=== PATIENT | female | born 1965 | race Caucasian/White ===

== ENCOUNTER 2019-01-01 12:53 | Emergency (ER) | payer MEDICAID, OTHER ==
[~2019-01-01] VITALS: Ht 167.6 cm; Wt 66.0 kg
[~2019-01-01 12:53] MED LIST: NAPR-56 PO
[2019-01-01 13:01] VITALS: BP 111/86
== END 2019-01-01 14:00 | disposition left against medical advice (07) ==
LOC: ER 12:54
DX: R10.9 Unspecified abdominal pain (principal); Z53.21 Procedure and treatment not carried out due to patient leaving prior to being seen by health care provider

== ENCOUNTER 2020-08-26 16:15 | Emergency (ER) | payer MEDICAID, OTHER ==
[~2020-08-26] VITALS: Ht 167.6 cm; Wt 70.5 kg
[2020-08-26 18:57] VITALS: BP 144/81
--- NOTE | 2020-08-26 19:11 | NUR ---
Provider RENU Arenas reports IV access is not needed at this time.
--- NOTE | 2020-08-26 19:11 | NUR ---
Attempted IV access in the right posterior forearm unsuccessfully. 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
[2020-08-26 19:16] LABS: BASOPHILS % (AUTO) 0.3 % (0-1); EOSINOPHILS # (AUTO) 0.1 X10'3 (0-0.9); EOSINOPHILS % (AUTO) 0.8 % (0-6); HEMATOCRIT 40.1 % (35.0-45.0); HEMOGLOBIN 13.4 g/dl (12.0-16.0); LYMPHOCYTES % (AUTO) 10.5 % (21-51); MEAN CORPUSCULAR HEMOGLOBIN 29.7 PG (27.0-31.0); MEAN CORPUSCULAR HGB CONC 33.5 g/dL (33.0-36.5); MEAN CORPUSCULAR VOLUME 88.7 FL (78-98); MEAN PLATELET VOLUME 7.6 FL (7.4-10.4); MONOCYTES # (AUTO) 0.3 X10'3 (0-0.9); MONOCYTES % (AUTO) 3.6 % (2-12); NEUTROPHILS # (AUTO) 8.2 X10'3 (1.8-7.7); NEUTROPHILS % (AUTO) 84.8 % (42-75); PLATELET COUNT 240 X10'3 (140-440); RED BLOOD COUNT 4.52 X10'6 (4.20-5.60); RED CELL DISTRIBUTION WIDTH 14.1 % (11.5-14.5); WHITE BLOOD COUNT 9.6 X10'3 (4.5-11.0)
[2020-08-26 19:33] LABS: ALANINE AMINOTRANSFERASE 50 U/L (12-78); ALBUMIN 3.9 G/DL (3.4-5.0); ALBUMIN/GLOBULIN RATIO 1.2 (1.1-1.5); ALKALINE PHOSPHATASE 114 IU/L (46-116); ANION GAP 9 (8-16); ASPARTATE AMINO TRANSFERASE 33 U/L (10-37); BILIRUBIN,TOTAL 0.3 MG/DL (0.1-1.0); BLOOD UREA NITROGEN 15 MG/DL (7-18); BUN/CREATININE RATIO 16.1 (6.6-38.0); CALCIUM 9.2 MG/DL (8.5-10.1); CHLORIDE 106 MMOL/L (99-107); CREATININE 0.93 MG/DL (0.40-0.90); GLUCOSE 110 MG/DL (70-104); POTASSIUM 4.2 MMOL/L (3.5-5.1); SODIUM 141 MMOL/L (135-145); TOTAL CARBON DIOXIDE 26.1 MMOL/L (24-32); TOTAL PROTEIN 7.2 G/DL (6.4-8.2); eGFR 63 ML/MIN
== END 2020-08-26 21:40 | disposition home or self-care (01) ==
LOC: ER 16:15
DX: R07.2 Precordial pain (principal); F19.10 Other psychoactive substance abuse, uncomplicated; F11.10 Opioid abuse, uncomplicated; G89.29 Other chronic pain; Z90.49 Acquired absence of other specified parts of digestive tract; Z90.710 Acquired absence of both cervix and uterus; Z91.011 Allergy to milk products; Z88.8 Allergy status to other drugs, medicaments and biological substances; Z79.899 Other long term (current) drug therapy
CPT/HCPCS: 36415; 71045; 80053; 83735; 83880; 84484; 85025; 93005; 99285

== ENCOUNTER 2022-05-10 20:31 | Emergency (ER) | payer SELFPAY ==
[~2022-05-10] VITALS: Ht 167.6 cm; Wt 68.2 kg
[2022-05-10 20:53] VITALS: BP 171/83
== END 2022-05-11 06:28 | disposition left against medical advice (07) ==
LOC: ER 20:31
DX: Z00.00 Encounter for general adult medical examination without abnormal findings (principal); Z53.21 Procedure and treatment not carried out due to patient leaving prior to being seen by health care provider; W45.8XXA Other foreign body or object entering through skin, initial encounter; Y93.89 Activity, other specified; Y92.89 Other specified places as the place of occurrence of the external cause; Y99.8 Other external cause status
CPT/HCPCS: 73090

== ENCOUNTER 2022-11-21 13:17 | Emergency (ER) | payer MEDICAID ==
[~2022-11-21] VITALS: Ht 167.6 cm; Wt 81.8 kg
--- NOTE | 2022-11-21 13:45 | NUR ---
Met with patient for narcotic withdrawal. Patient last used Fentanyl 35 hours ago and took a Suboxone 8mg and now has symptoms of precipitated withdrawal. Patient doesn't have a current MAT provider. I gave patient information on [facility], [facility], [facility] and my card to call me with any questions.
[2022-11-21] MEDS ORDERED: buprenorphine/naloxone 8MG-2MG SUBlingual film SL STA ×7 (14:09→18:15)
[2022-11-21] MEDS ORDERED: ondansetron/PF 4mg/2ml inj IV ONE (14:10)
[2022-11-21] MEDS ORDERED: normal saline 1000ML IV soln IVB ONE ×2 (14:10→17:05)
[2022-11-21] MEDS ORDERED: cloNIDine 0.1 mg tablet PO ONE (14:10)
[2022-11-21 14:43] LABS: BASOPHILS % (AUTO) 0.4 % (0-1); EOSINOPHILS # (AUTO) 0.2 X10'3 (0-0.9); EOSINOPHILS % (AUTO) 1.7 % (0-6); HEMATOCRIT 49.5 % (35.0-45.0); HEMOGLOBIN 15.7 g/dl (12.0-16.0); LYMPHOCYTES % (AUTO) 20.6 % (21-51); MEAN CORPUSCULAR HEMOGLOBIN 28.9 PG (27.0-31.0); MEAN CORPUSCULAR HGB CONC 31.7 g/dL (33.0-36.5); MEAN CORPUSCULAR VOLUME 91.1 FL (78-98); MEAN PLATELET VOLUME 7.3 FL (7.4-10.4); MONOCYTES # (AUTO) 0.5 X10'3 (0-0.9); MONOCYTES % (AUTO) 5.6 % (2-12); NEUTROPHILS # (AUTO) 6.8 X10'3 (1.8-7.7); NEUTROPHILS % (AUTO) 71.7 % (42-75); PLATELET COUNT 287 X10'3 (140-440); RED BLOOD COUNT 5.44 X10'6 (4.20-5.60); WHITE BLOOD COUNT 9.5 X10'3 (4.5-11.0)
[2022-11-21 15:03] LABS: ALANINE AMINOTRANSFERASE 31 U/L (12-78); ALBUMIN 3.8 G/DL (3.4-5.0); ALBUMIN/GLOBULIN RATIO 0.8 (1.1-1.5); ALKALINE PHOSPHATASE 144 IU/L (46-116); ANION GAP 13 (8-16); ASPARTATE AMINO TRANSFERASE 29 U/L (10-37); BILIRUBIN,TOTAL 0.4 MG/DL (0.1-1.0); BLOOD UREA NITROGEN 11 MG/DL (7-18); BUN/CREATININE RATIO 10.3 (6.6-38.0); CALCIUM 9.7 MG/DL (8.5-10.1); CHLORIDE 106 MMOL/L (99-107); CREATININE 1.07 MG/DL (0.40-0.90); GLUCOSE 87 MG/DL (70-104); POTASSIUM 4.3 MMOL/L (3.5-5.1); SODIUM 138 MMOL/L (135-145); TOTAL CARBON DIOXIDE 19.4 MMOL/L (24-32); TOTAL PROTEIN 8.3 G/DL (6.4-8.2); eGFR 53 ML/MIN
--- NOTE | 2022-11-21 15:31 | NUR ---
PATIENT TAKING BP CUFF OFF, REFUSING VS MONITORING.
[2022-11-21] MEDS ORDERED: haloperidol lactate 5mg/ml inj IM ONE (15:50)
[2022-11-21] MEDS ORDERED: buprenorphine/naloxone 8MG-2MG SUBlingual film SL ONE (16:55)
--- NOTE | 2022-11-21 17:31 | NUR ---
PT'S FRIEND, JOSEJACQUES HONG, CALLED AND GAVE HER PHONE # TO CALL FOR WHEN PT IS BEING DISCHARGED;
[2022-11-21 18:15] VITALS: BP 171/111
[2022-11-21] MEDS ORDERED: BUPR1FIL3 SL (18:27)
== END 2022-11-21 19:55 | disposition home or self-care (01) ==
LOC: ER 13:18
DX: F11.23 Opioid dependence with withdrawal (principal); R10.30 Lower abdominal pain, unspecified; G89.29 Other chronic pain; Z90.710 Acquired absence of both cervix and uterus; Z90.49 Acquired absence of other specified parts of digestive tract; Z98.890 Other specified postprocedural states; Z79.899 Other long term (current) drug therapy
CPT/HCPCS: 36415; 80053; 85025; 96361; 96372; 96374; 99285; J1630; J2405; J7030

== ENCOUNTER 2024-06-08 23:11 | Emergency (ER) | payer MEDICAID, OTHER ==
[~2024-06-08] VITALS: Ht 167.6 cm; Wt 77.3 kg
[2024-06-08] MEDS ORDERED: NAPR-996 PO (23:59)
[2024-06-08] MEDS ORDERED: DICL1PAT13 TOP (23:59)
[2024-06-09] MEDS: ketorolac trometh 15mg/ml vial 15 MG/ML ML IM ONE (00:01)
[2024-06-09 00:11] VITALS: BP 162/90; PULSE 99; RESP 20; TEMP 98.6; O2SAT 98
== END 2024-06-09 00:15 | disposition home or self-care (01) ==
LOC: ER 23:11
DX: M25.511 Pain in right shoulder (principal); G89.29 Other chronic pain; M54.9 Dorsalgia, unspecified; Z90.49 Acquired absence of other specified parts of digestive tract; Z90.710 Acquired absence of both cervix and uterus; Z79.1 Long term (current) use of non-steroidal anti-inflammatories (NSAID)
CPT/HCPCS: 73030; 96372; 99283; J1885; A4565

== ENCOUNTER 2025-04-20 02:56 | Inpatient (IN) | payer MEDICAID ==
[~2025-04-20] VITALS: Ht 167.6 cm; Wt 76.0 kg
[~2025-04-20 02:56] MED LIST changes: +DICL1PAT13 TOP; +NAPR-1168 PO
--- NOTE | 2025-04-20 03:13 | ELECTROCARDIOGRAPH REPORT ---
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 Vannessa Rodriguez Measurements Intervals [place] Rate: 82 P: -33 SD: 128 QRS: 58 QRSD: 90 T: 31 QT: 382 QTc: 446 Interpretive Statements Sinus rhythm Low voltage, precordial leads Anteroseptal infarct, old Baseline wander in lead(s) I,II,III,aVL,aVF,V1,V2,V3,V4,V5 Electronically Signed On 04-20-2025 4:14:[address] Vannessa Rodriguez Please click the below link to view image of tracing.
[2025-04-20] MEDS: ondansetron/PF 4mg/2ml inj IV ONE ×4 (03:44→10:15)
--- NOTE | 2025-04-20 03:55 | RADIOLOGY REPORT ---
CHEST RADIOGRAPH Indication: CP Technique: Single frontal view of the chest was obtained COMPARISON: CHEST,SINGLE VIEW on DOS: 08/26/20 FINDINGS: Lines and Tubes: None Lungs: Clear Pleura: No effusion. No pneumothorax. Cardiomediastinal contours: Unremarkable Bones: Unremarkable IMPRESSION: 1. No acute disease.
[2025-04-20 03:59] LABS: MEAN PLATELET VOLUME 8.0 FL (7.4-10.4); RED CELL DISTRIBUTION WIDTH 14.9 % (11.5-14.5)
[2025-04-20 05:11] LABS: CREATININE 1.15 MG/DL (0.40-0.90); TOTAL CARBON DIOXIDE 25.3 MMOL/L (24-32); eCRCL 51 ML/MIN; eGFR 49 ML/MIN
--- NOTE | 2025-04-20 05:16 | Physician Documentation ---
History of Present Illness Chief Complaint: Abdominal Pain Stated Complaint: CONSTIPATION,VOMITING Time Seen by MD: 05:11 Primary Medical Doctor: None Source: patient, RN notes reviewed, old records Mode of Arrival: POV Exam Limitations: no limitations HPI BED 16 This patient is a 59 y/o female who presents to ED with chief complaint of abdominal pain. Patient reports that since last night she has had severe abdominal pain, as well as nausea and vomiting. Patient reports she has history of small bowel obstruction, and that this pain feels similar. She describes the pain as a constant sharp pain, no radiation anywhere else. HPI limited: Patient is moaning in pain, unable to answer many of my questions due to her pain. Medication Reconciliation Allergies: Uncoded Allergies: DAIRY (Allergy, Intermediate, 12/08/11) DIARRHEA PENICILLIN (Allergy, Unknown, 04/20/25) Scheduled Clindamycin HCl (Clindamycin HCl), 1 CAP PO TID, (Reported) [methadone], 81 MG PO DAILY, (Reported) Discontinued Medications Diclofenac Epolamine (Flector), 1 PATCH TOP Q12H Discontinued Reason: patient no longer taking Naproxen (Naproxen), 500 MG PO Q12H Discontinued Reason: patient no longer taking Naproxen (Naproxen), 1 TAB PO Q12H Discontinued Reason: patient no longer taking Past Medical History Past Medical History: Chronic Back Pain Past Surgical History: appendectomy, hysterectomy, orthopedic surgeries Smoking Status: Unknown if ever smoked Alcohol Use: None Drug Use: none Lives with: Family Lives In: Home Review of Systems All Other Systems at this time: Reviewed and Negative Physical Exam Vital Signs: RN Vital Signs have been reviewed: Yes, Temperature: 97.7, Source: Oral, Heart Rate: 64, Respiratory Rate: 18, BP: 177/95, Pulse Oximetry: 97, We ight: 75.950 Oxygen Flow Rate: 0 Physical Exam General: The patient is in the position, moaning in pain. Otherwise she is well developed, well nourished, nontoxic appearing. Skin: [place], warm and dry with no rashes. HEENT: Head was normocephalic and atraumatic. Eyes - pupils equal, round, reactive to light and accommodation. Extraocular movements were intact. Conjunctivae were nonicteric. Ears - bilateral tympanic membranes were normal. The mouth and oropharynx were clear with moist mucous membranes. There were no pharyngeal exudates or erythema. Neck: Supple and nontender. There was no jugular venous distention, lymphadenopathy, thyromegaly or masses. Chest: Clear to auscultation bilaterally without wheezes, rales or rhonchi. No accessory muscle use. No dullness to percussion. Heart: Rate regular and rhythmic. S1, S2. No murmurs. Palpation of the chest wall was normal. No rubs or thrills. Abdomen: Diffusely tender to palpation. Abdomen otherwise soft and nondistended. Positive bowel sounds. No guarding or rebound. No hepatosplenomegaly or palpable masses. Extremities: No cyanosis, clubbing or edema. The patient moves all extremities. Pulses were equal and symmetric. Neurologic: Cranial nerves II-XII were intact. Sensation was intact to light touch throughout. Motor strength was 5/5 in all four extremities. Deep tendon reflexes were intact in both upper and lower extremities. Psychologic: The patient was oriented to person, place and time. The patient demonstrated appropriate judgement and insight. Progress Progress Note Assumed care of patient from Dr. Noel. Patient with abdominal pain since the middle of the night and vomiting. History of volvulus, . Denies any history of resection. CT scan shows small bowel obstruction. Gave additional Dilaudid and fluids. Did place an NG tube and nursing team reports a got about 100 cc out and then the patient pulled it out because she absolutely could not tolerate it. Discussed with surgeon Dr. Hartman who will consult if needed, otherwise admitted to the hospitalist team. Patient with no chest pain but serial troponins were run and last troponin was slightly elevated. Likely strain. Patient is stable on admission. Results/Orders Reviewed/noted all lab results: Yes Results/Orders Orders - VIET NOEL MD Urinalysis, Cult If Indicated (04/20/25 03:04) Lipase (04/20/25 03:04) CMP (04/20/25 03:04) Chest,Single View (04/20/25 03:45) Monitor (04/20/25 03:04) Saline Lock (04/20/25 03:04) Oxygen (04/20/25 03:04) PBNP (04/20/25 03:04) Electrocardiogram (04/20/25 03:04) Hs Troponin I W Calculations (04/20/25 05:04) Hs Troponin I W Calculations (04/20/25 06:04) Zofran Iv (04/20/25 05:15) Morphine Iv (04/20/25 05:15) Normal Saline Bolus (04/20/25 05:15) Ct Abdomen Pelvis (04/20/25 05:12) Completed Orders - VIET NOEL MD Cbc/Diff (04/20/25 03:04) Chest,Single View (04/20/25 03:45) Electrocardiogram (04/20/25 03:04) Hs Troponin I W Calculations (04/20/25 03:04) Ondansetron Inj. (Zofran 4mg/2ml Vial) (04/20/25 03:15) Medications Received in ER Medications (Trade) Dose Ordered Sig/Radha Route PRN Reason Start Time Stop Time Status Last Admin Dose Admin (Zofran 4mg/2ml vial) 4 mg ONCE ONCE IV 04/20/25 03:15 04/20/25 03:16 DC 04/20/25 03:44 4 MG Vital Signs 04/20/25 04/20/25 04/20/25 02:58 03:30 03:46 Temp 97.7 Pulse 87 64 Resp 16 18 B/P (MAP) 196/115 177/95 (122) Pulse Ox 99 97 O2 Flow Rate 0 Laboratory Tests Test 04/20/25 03:40 04/20/25 05:13 White Blood Count 7.8 Red Blood Count 4.48 Hemoglobin 13.1 Hematocrit 38.8 Mean Corpuscular Volume 86.4 Mean Corpuscular Hemoglobin 29.1 Mean Corpuscular Hemoglobin Concent 33.7 Red Cell Distribution Width 14.9 H Platelet Count 291 Mean Platelet Volume 8.0 Neutrophils (%) (Auto) 52.9 Lymphocytes (%) (Auto) 35.4 Monocytes (%) (Auto) 6.0 Eosinophils (%) (Auto) 4.6 Basophils (%) (Auto) 1.1 H Neutrophils # (Auto) 4.1 Lymphocytes # (Auto) 2.8 Monocytes # (Auto) 0.5 Eosinophils # (Auto) 0.4 Basophils # (Auto) 0.1 CBC Comment Sodium Level 137 Potassium Level 4.0 Chloride Level 104 Carbon Dioxide Level 25.3 Anion Gap 8 Blood Urea Nitrogen 19 H Creatinine 1.15 H Estimated GFR/1.73 m2 49 BUN/Creatinine Ratio 16.5 Glucose Level 108 H Calcium Level 8.9 Total Bilirubin 0.3 Aspartate Amino Transf (AST/SGOT) 27 Alanine Aminotransferase (ALT/SGPT) 31 Alkaline Phosphatase 112 Troponin I High Sensitivity 8 Total Protein 7.1 Albumin 3.7 Globulin 3.4 Albumin/Globulin Ratio 1.1 Chemistry Comments Re-Evaluation Re-Evaluation : Re-Evaluation: Improved, Unchanged Progress Patient was seen and examined. Patient was given reassurance. Patient was moaning in pain just started the workup. To get the patient to CAT scan she required pain medications as well as hydration. After her pain was somewhat improved patient was then sent for additional diagnostic information. Initial labs were reassuring with a CBC within normal limits without leukocytosis anemia or left shift. Sed rate was also reassuring at 13. Chemistry initially was also reassuring with a slight elevation of the BUN at 19 and a creatinine of 1.15. CO2 within normal limits LFTs within normal limits. Lipase within normal limits. Laboratory work was quite normal alcohol negative positive for methadone. Urinalysis shows mild dehydration at best with a specific gravity of 1.015 and also within normal limits. Other than the patient's pain which was treated hydrated patient was signed out to the morning physician pending final diagnosis with CAT scan. Patient did not have peritoneal signs but her pain did seem quite significant. 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 Viet Noel Measurements Intervals [place] Rate: 82 P: -33 DE: 128 QRS: 58 QRSD: 90 T: 31 QT: 382 QTc: 446 Interpretive Statements Sinus rhythm Low voltage, precordial leads Anteroseptal infarct, old Baseline wander in lead(s) I,II,III,aVL,aVF,V1,V2,V3,V4,V5 Electronically Signed On 04-20-2025 4:14:[address] Viet Noel Please click the below link to view image of tracing. EKG Date and Time:04/20/25309 Electronically Signed by: VIET NOEL MD Date and Time: 04/20/25413 NO PRIMARY CARE PROVIDER~ cc: ~ Chest X-Ray : Interpreted By: both Additional Comments [address] [address] DIAGNOSTIC RADIOLOGY Patient: YOMI MUNIZ Medical Record: [id number] : 1965, Age: 59 Sex: Female Location: ER Patient Status: REG ER Service Date/Time: 04/20/25344 Ordering Physician: VIET NOEL MD Exam: CHEST,SINGLE VIEW CHEST RADIOGRAPH Indication: CP Technique: Single frontal view of the chest was obtained COMPARISON: CHEST,SINGLE VIEW on DOS: 08/26/20 FINDINGS: Lines and Tubes: None Lungs: Clear Pleura: No effusion. No pneumothorax. Cardiomediastinal contours: Unremarkable Bones: Unremarkable IMPRESSION: 1. No acute disease. Electronically Signed by:DEJON WHYTE MD Date & Time: 04/20/25 0353 Dictated by: DEJON WHYTE MD Dictation date and time: 04/20/25 0340 Primary Care Provider: NO PRIMARY CARE PROVIDER cc: VIET NOEL MD ~ Medical Decision Making Additional info obtained from: old records Differential Dx:Considerations: Include: AAA, Angina/MA, Aortic dissection, Appendicitis, Bowel obstruction, Cholangitis, Cholelithasis, Constipation, Diverticular disease, Esophageal rupture, Esophagitis, Gastritis/PUD, Gastroenteritis, GI hemorrhage, Hernia, Hepatitis, Inflammatory BD, Ischemic bowel, Ovarian cyst/torsion, Pancreatitis, PID, Porphyria, Trauma, intraabdominal, Urinary obstruction, Urinary tract infection, Urolithiasis, Other Departure Disposition: ADMITTED INPATIENT Admitted to Inpatient Unit: yes, to hospitalist Admission Level of Care: PCU with Tele Impression: Primary Impression: Small bowel obstruction Additional Impression: Abdominal pain Qualified Codes: R10.84 - Generalized abdominal pain Condition: Stable Discharge Instructions: Gastritis, Adult Referrals: NO PRIMARY CARE PROVIDER (PCP) Education Educated: Patient Educated regarding: diagnosis, need for follow up Signature Scribe Signature: Scribed for Viet Noel MD by Otilia Flores. 04/20/25 05:38 Attestation: No scribe used VIET NOEL MD Apr 20, 2025 05:16 MOHSEN YANES MD Apr 20, 2025 11:25
[2025-04-20 05:17] LABS: LEUKOCYTE ESTERASE ,URINE NEGATIVE (Neg); NITRITES, URINE NEGATIVE (Neg); OCCULT BLOOD,URINE NEGATIVE (Neg)
[2025-04-20 05:18] LABS: PRO BRAIN NATRIURETIC PEPTIDE 192 PG/ML (0-125)
[2025-04-20 05:22] LABS: UA COLLECTION TYPE CLN CATCH MIDSTREAM
[2025-04-20] MEDS ORDERED: iohexol 300mg/ml 100ml inj. ONE (05:23)
[2025-04-20] MEDS: normal saline 1000ML IV soln IVB ONE (05:27)
[2025-04-20 06:53] LABS: ETHANOL < 10 MG/DL (<10)
[2025-04-20 08:14] LABS: URINE AMPHETAMINE SCREEN NEGATIVE (Neg); URINE BARBITUATE SCREEN NEGATIVE (Neg); URINE BENZODIAZEPINES SCREEN NEGATIVE (Neg); URINE CANNABINOID SCREEN NEGATIVE (Neg); URINE COCAINE SCREEN NEGATIVE (Neg); URINE METHADONE SCREEN POSITIVE (Neg); URINE OPIATE SCREEN NEGATIVE (Neg); URINE PHENCYCLIDINE SCREEN NEGATIVE (Neg)
--- NOTE | 2025-04-20 09:55 | RADIOLOGY REPORT ---
Exam: CT CT ABDOMEN PELVIS W/ IV CONTRAST History: ABD PAIN Comparison Study: None. Technique: Multidetector spiral CT of the abdomen was performed from lung bases to pubic symphysis. A xial imaging was performed with intravenous contrast following the uneventful administration of 100 m l Omnipaque 300. Coronal and sagittal multiplanar reformats were obtained from the axial data set by the technologist. Radiation Dose : 1. Abdomen/Pelvis: CTDIvol 28.95 mGy, DLP 1511.96 mGy*cm. Findings: Lung Bases: Lung bases are clear. Visualized portions of the heart and pericardium are unremarkable. Liver: The liver is normal in size. No focal lesions. Diffusely hypoattenuating liver parenchyma con sistent with hepatic steatosis. Gallbladder and Biliary Tree: The gallbladder is unremarkable. No intrahepatic or extrahepatic biliar y ductal dilatation. Spleen: Unremarkable Pancreas: The pancreas enhances normally and there are no focal lesions. The main pancreatic duct is not dilated. Adrenal Glands: Unremarkable Kidneys: Kidneys enhance symmetrically. No calculi or hydronephrosis. GI tract: The stomach is grossly normal in appearance. There are several dilated fluid-filled small bowel loops with abrupt transition to collapsed small bowel loops in the central lower abdomen consis tent with high-grade small bowel obstruction. There is stool throughout the colon. Appendix not visu alized. No findings to suggest acute appendicitis. Peritoneum/mesentery/retroperitoneum. No evidence of free intraperitoneal air. No ascites. No evidenc e of suspicious lymphadenopathy. Abdominal Wall: Unremarkable. Vasculature: Abdominal aorta and main branches are unremarkable. Normal vascular enhancement. Urinary Bladder: Grossly unremarkable for degree of distention. Pelvic Organs: Unremarkable Musculoskeletal: No aggressive focal bony lesions, acute fractures or dislocation. Multilevel lumbar spondylosis. Grade 1 anterolisthesis at L5-S1. IMPRESSION: 1. High-grade small-bowel obstruction with transition point in the central lower abdomen. 2. Hepatic steatosis.
[2025-04-20] MEDS ORDERED: HYDROmorphone/PF 0.2 MG/ML SYRINGE IV ONE (10:10)
[2025-04-20] MEDS: normal saline 1000ml 1,000 ML IV ONE (10:15)
[2025-04-20] MEDS ORDERED: magnesium sulf-water 4G/100mL 100 ML IV PRN (11:45)
[2025-04-20] MEDS ORDERED: acetaminophen 650mg rectal suppository RC PRN (11:45)
[2025-04-20] MEDS ORDERED: bisacodyl 10mg suppository rectal RC PRN (11:45)
[2025-04-20] MEDS ORDERED: potassium Cl 20 mEq SR tablet PO PRN (11:45)
[2025-04-20] MEDS ORDERED: magnesium Cl slow-release 64mg tablet PO PRN (11:45)
[2025-04-20] MEDS ORDERED: potassium Cl 40MEQ/1/2NS 520ml 520 ML IV PRN (11:45)
[2025-04-20] MEDS ORDERED: mag hydrox/Alum hydrox/simeth 30ml oral suspension PO PRN (11:45)
[2025-04-20] MEDS ORDERED: magnesium sulf-water 2g/50mL 50 ML IV PRN (11:45)
[2025-04-20 12:18] LABS: APTT 28 SECONDS (22-32); INR 1.0 INR
[2025-04-20 12:35] LABS: PHOSPHORUS 2.7 MG/DL (2.3-4.5); PRO BRAIN NATRIURETIC PEPTIDE 703 PG/ML (0-125)
[2025-04-20] MEDS: HYDROmorphone inj. 0.5 MG/0.5 ML DISP.SYRIN IV PRN (13:04)
--- NOTE | 2025-04-20 14:17 | HISTORY AND PHYSICAL ---
History & Physical Providers to Chief complaint, abdominal pain, nausea vomiting ~ History of Present Illness Reason for Admit\Complaint: As above History of Present Illness This patient is a 59 y/o female , with history of multiple medical problems including hypertension uncontrolled, blood pressure on admission 196/115, on methadone now, history of polysubstance abuse including fentanyl abuse in the past, clear now, history of hepatic steatosis, chronic tobacco abuse including currently, history of presented today to emergency department chief complaint nausea vomiting associated with abdominal pain; in addition this is the patient who presents to ED with chief complaint of aching, located periumbilically, abdominal pain. Patient reports that since last night she has had severe abdominal pain, as well as nausea and vomiting. Patient reports she has history of small bowel obstruction, and that this pain feels similar. She describes the pain as a constant sharp pain, no radiation anywhere else. HPI limited: Patient is moaning in pain, unable to answer many of my questions due to her pain. Emergency department she was evaluated by physician, was diagnosed with small-bowel obstruction, and after consultation with general surgeon, decision was made to admit patient for further evaluation and treatment. NG tube was placed but patient refused to use it, and remove the NG tube, no additional complaint or concern Allergies: Uncoded Allergies: DAIRY (Allergy, Intermediate, 12/08/11) DIARRHEA PENICILLIN (Allergy, Unknown, 04/20/25) Active prescriptions I reviewed reconciled Home Medications Home Medications Active Naproxen 500 Mg Tablet 1 Tab PO Q12H 30 Days Flector (Diclofenac Epolamine) 1.3 % Patch.td12 1 Patch TOP Q12H 30 Days Naproxen 500 Mg Tablet 500 Mg PO Q12H Past Medical History Past Medical History As in HPI Past Surgical History Surgical History Comment As in HPI Past Social History Social History Comment Deny illicit drug abuse tobacco alcohol use live with the family good social support Health Maintenance Health Maintenance Noncontributory ROS ROS Constitutional : no fever , no chills, or weakness. No diaphoresis. Allergic/Immunologic, no lymphadenopathy, no hives, no skin eruptions. Eyes, no recent visual changes, no eye pain, no photophobia. Ears, nose, mouth, throat, no sore throat, no nosebleed, no ear pain. Cardiovascular, no palpitations, skipped beats, chest pain, no peripheral edema, Respiratory, no dyspnea, orthopnea, cough, hemoptysis, chest wall pain. Gastrointestinal, positive for abdominal pain, nausea, vomiting, no constipation or diarrhea. : no dysuria, hematuria, pelvic pain, urethral d/c. Endocrine, no polyuria, polydipsia, recent unintentional weight gain or loss. Hematologic/Lymphatic, no petechiae, no enlarged lymph nodes, no bone pain. Integumentary, no rash, no skin lesions, Musculoskeletal, no muscle aches, or pain, no muscle cramps, no recent change in gait Neurological, no dizziness, no headache, no syncope, no paresthesia. Psychiatric, no delusions, visual hallucinations, or hearing hallucinations. ROS - in rest is as in HPI. Exam Vitals: Vital Signs Date Time Temp Pulse Resp B/P (MAP) Pulse Ox O2 Delivery O2 Flow Rate FiO2 04/20/25 13:04 18 04/20/25 09:33 72 140/114 (123) 99 0 04/20/25 06:20 97.7 Vital signs, stable ,afebrile. Pulse Oximetry reflects adequate oxygenation. BMI is 27, weight 75 kg General: well developed, well nourished. Awake , alert, and oriented x4, resting comfortably in the bed, in no acute distress . Skin: Warm, dry, no pallor, no rash or petechiae. HEENT: Atraumatic, normocephalic, EOMI, anicteric sclera B; pink conjunctiva; PERRLA, normal oropharynx, moist oral and nasal mucosa. Tympanic membrane , nose , throat clear. Neck: Trachea midline. Supple, full range of motion, no JVD, bruit , hepatojugular reflex , lymphadenopathy or masses, or other lesions Cardiac: Regular rhythm, regular rate no murmurs, rubs, or gallops. Normal S1 and S2, no S3 noticed. PMI is normal. Respiratory: Equal breath sounds bilaterally, no tachypnea; lungs clear to auscultation bilaterally, no wheezing ,rub or rales, or crackles. Chest wall is symmetric and without deformity. No signs of trauma. Chest wall is nontender. No signs of respiratory distress. Resonance is normal upon percussion bilaterally. Gastrointestinal: Abdomen symmetric, non-distended, soft, mild tender to palpation periumbilically, normal bowel sounds x4 quadrant, normoactive, no hepatosplenomegaly , no masses , no bruit, no flank pain bilaterally. No voluntary guarding, rebound, or rigidity. No tenderness to percussion. No pulsatile masses. Equal femoral pulses. No Freitas's sign or McBurney point tenderness. Back; no CVA tenderness bilaterally, no deformities. Neck and back are without deformity as well. No tenderness noted on palpation of the spinous processes. Spinous processes are midline. Cervical, thoracic, and lumbar paraspinal muscles are not tender and are without spasm. : Deferred by patient Musculoskeletal: Extremities, normal range of motion, non-tender, muscle strength 5/5 x 4. Negative Homans signs bilaterally on lower extremity. Distal pulses full symmetrical, no clubbing, cyanosis , edema. Neurological: Speech is clear, alert, and oriented x 4. No motor or sensory deficit, deep tendon reflexes normal, cerebellar intact. Cranial nerves II-XII intact. Psych: Alert and or appropriate, normal affect. Vascular: Good distal pulses, which are equal x4; capillary refill less than 2 seconds. Lymphatic, no lymphadenopathy. Diagnostic Data Last Recorded Lab Results: 04/20/25 0340 04/20/25 0340 Diagnostic Data: Laboratory Tests Test 04/20/25 09:30 Prothrombin Time 10.3 SECONDS (9.0-12.0) INR International Normalized Ratio 1.0 INR Activated Partial Thromboplast Time 28 SECONDS (22-32) Coagulation Comments Advance Care Planning Advanced Care plannin - 30 Minutes Additional Plan Assessment Small-bowel obstruction Hypertensive emergency Non ST-elevation MN type 2 secondary to hypertensive emergency Hepatic steatosis History of polysubstance abuse including fentanyl abuse clear now On methadone therapy at home, secondary to above History of Chronic tobacco abuse including currently Plan Pain control, IV fluids keep patient well hydrated euvolemic Control blood pressure Serial troponin EKG NG tube was in place, patient remove it secondary to noncompliance Consulted for 5 minute to stop using tobacco patient states is not ready yet to quit refused treatment General surgeon Dr. Lagos is on the case Additional lab work pending Protonix IV I reconciled home medications NPO DVT gastropathy prophylaxis addressed Sepsis Screening Reassessment Date: Apr 20, 2025 Date of Service: Apr 20, 2025 Billing Provider: HIWOT BUITRAGO MD Common Visit Codes: 11111-IUI/OBS SAME DATE (HIGH) Secondary Visit Codes: 04436-GTRDL CHNG SMOKING 3-10M, 53711-AZYHNIPI CARE PLAN 30 MINUTES HIWOT BUITRAGO MD Apr 20, 2025 14:17
[2025-04-20] MEDS ORDERED: methadone PO (14:35)
[2025-04-20] MEDS ORDERED: CLIN-216 PO (14:35)
[2025-04-20] MEDS: normal saline 1000ml 1,000 ML IV SCH (14:53)
[2025-04-20 15:00] VITALS: BP 119/61; PULSE 85; RESP 16; TEMP 98; O2SAT 98
[2025-04-20] MEDS: ondansetron 4mg rapidly disintigrating tab PO PRN (15:04)
[2025-04-20] MEDS: docusate sod 100mg capsule PO SCH (19:50)
[2025-04-20] MEDS: heparin, porcine 5000 units/ml vial SQ SCH (19:50)
[2025-04-20] MEDS: K and/or MAG REPLACEMENT MC SCH (19:51)
[2025-04-20 20:00] VITALS: RESP 16; O2SAT 99
[2025-04-20] MEDS ORDERED: pantoprazole 40MG/NS 100ML BAG 100 ML IV SCH (20:00)
--- NOTE | 2025-04-20 20:47 | PROGRESS NOTE ---
Progress Note Dictate Providers to CC CC: MERE MAGUIRE MD ~ Progress Note: Consult for small-bowel obstruction Patient had a previous small bowel obstruction about 13 years ago with a previous appendectomy and hysterectomy prior to that Non bilious nasogastric tube output Abdomen benign Oral contrast, large dose given at 930-miah CT scan ordered for 1st thing tomorrow morning I will continue to follow and full consult note will also follow Antibiotic Ordered?: No Objective Vitals Vital Signs Date Time Temp Pulse Resp B/P (MAP) Pulse Ox O2 Delivery O2 Flow Rate FiO2 04/20/25 19:50 18 04/20/25 18:30 73 04/20/25 15:00 98.0 119/61 (80) 98 Nasal Cannula 3.0 Lab Results: 04/20/25 0340 04/20/25 0340 Coagulation Studies Laboratory Tests Test 04/20/25 09:30 04/20/25 18:07 Prothrombin Time 10.3 SECONDS (9.0-12.0) INR International Normalized Ratio 1.0 INR Activated Partial Thromboplast Time 28 SECONDS (22-32) Coagulation Comments D-Dimer 1.34 MG/L FEU (0-0.50) H D-Dimer Comment MERE MAGUIRE MD Apr 20, 2025 20:47
[2025-04-20] MEDS: hydrALAZINE 20mg/ml inj. IV PRN (23:01)
[2025-04-20] MEDS: diatrozoate meglu/diatrozoate sod (37% iodine) 120ML oral solution PO ONE (23:02)
[2025-04-20] MEDS: ondansetron/PF 4mg/2ml inj IV PRN (23:26)
[2025-04-21] MEDS: metoclopramide 5 mg/ml inj IV PRN (02:49)
[2025-04-21 06:00] VITALS: BP 165/97; PULSE 85; RESP 18; TEMP 98.2; O2SAT 94
[2025-04-21 08:00] VITALS: RESP 18; O2SAT 94
[2025-04-21 11:00] VITALS: BP 128/76; PULSE 93; RESP 19; TEMP 99; O2SAT 96
--- NOTE | 2025-04-21 13:16 | RADIOLOGY REPORT ---
Indication: SBO Technique: CT axial images of the abdomen and pelvis are obtained with intravenous contrast. Coronal and sagittal reformats were obtained. Radiation Dose Information: CTDI volume is 36.2 mGy. Dose-length product is 1737 mGy*cm Comparison: CT CT ABDOMEN PELVIS W/ IV CONTRAST on DOS: 04/20/25 FINDINGS: Lung bases demonstrate no pleural effusion. Adrenal glands, spleen, pancreas unremarkable in shape. Vicarious excretion contrast from the gallbl adder consistent with underlying renal dysfunction. Liver is unremarkable in shape. No hydronephrosis/ nephrolithiasis. Small hiatal hernia. Stomach is partially distended. The small-bowel loops are significantly decreas ed in distention compared to the previous examination. The Fecal like contents are nearly resolved. Contrast reaches the hepatic flexure of the colon. Colonic diverticular disease. Moderate volume st ool in the colon. No secondary signs for appendicitis. Abdominal aortic atherosclerotic disease. Bladder partially distended. No free pelvic fluid. No ingui nal lymphadenopathy. Moderate to advanced thoracolumbar degenerative disc disease most pronounced at L5-S1. Endplate irre gularity changes at L5-S1.5 mm anterolisthesis of L5 on S1. IMPRESSION: Interval significantly decreased distention of the small bowel loops with contrast reaching the hepat ic flexure of the colon. These findings are suggesting improving/resolving small bowel obstruction. Recommend continued imaging follow-up. Surgical consultation for management. Moderate to advanced thoracolumbar degenerative disc disease most pronounced at L5-S1. Colonic diverticular disease. Other findings as described.
[2025-04-21 14:01] LABS: MEAN PLATELET VOLUME 8.0 FL (7.4-10.4); RED CELL DISTRIBUTION WIDTH 15.2 % (11.5-14.5)
--- NOTE | 2025-04-21 14:07 | PROGRESS NOTE ---
Progress Note Dictate Providers to CC CC: MERE MAGUIRE MD ~ Progress Note: No obstruction on repeat CT Surgery will sign off Antibiotic Ordered?: No Objective Vitals Vital Signs Date Time Temp Pulse Resp B/P (MAP) Pulse Ox O2 Delivery O2 Flow Rate FiO2 04/21/25 12:40 16 04/21/25 11:00 99.0 93 128/76 (93) 96 Room Air 04/20/25 15:00 3.0 Lab Results: 04/21/25 1341 04/20/25 0340 Coagulation Studies Laboratory Tests Test 04/20/25 09:30 04/20/25 18:07 Prothrombin Time 10.3 SECONDS (9.0-12.0) INR International Normalized Ratio 1.0 INR Activated Partial Thromboplast Time 28 SECONDS (22-32) Coagulation Comments D-Dimer 1.34 MG/L FEU (0-0.50) H D-Dimer Comment MERE MAGUIRE MD Apr 21, 2025 14:06
[2025-04-21 14:26] LABS: CHOL/HDL RATIO 4.9 (0.00-4.99); CREATININE 0.89 MG/DL (0.40-0.90); LDL CHOLESTEROL 152 MG/DL (50-100); TOTAL CARBON DIOXIDE 24.5 MMOL/L (24-32); eCRCL 65 ML/MIN; eGFR 65 ML/MIN
[2025-04-21 15:00] VITALS: BP 146/87; PULSE 74; RESP 22; TEMP 97.6; O2SAT 96
[2025-04-21 18:00] VITALS: BP 182/98; PULSE 73; RESP 16; TEMP 97.8; O2SAT 93
[2025-04-21] MEDS: normal saline 1000ml 1,000 ML IV SCH (18:01)
[2025-04-21] MEDS: HYDROcodone/acetaminophen 10/325mg tab PO PRN (18:04)
--- NOTE | 2025-04-21 19:35 | PROGRESS NOTE ---
Daily Progress Note Providers to CC Feels better today, tolerating p.o. fluids released flatus ~ Central Line/PICC still needed: No Crum-Non Protocol Crum Indications Met/Not Met: F/C Indications Not Met Antibiotic Timeout Antibiotic Ordered?: No MRSA Education MRSA Education Provided to pt: No Subjective As above Objective Vital Signs Date Time Temp Pulse Resp B/P (MAP) Pulse Ox O2 Delivery O2 Flow Rate FiO2 04/21/25 18:04 16 04/21/25 15:00 97.6 74 146/87 (106) 96 Room Air 04/20/25 15:00 3.0 Vital signs, stable ,afebrile. Pulse Oximetry reflects adequate oxygenation 3 L oxygen nasal cannula General: well developed, well nourished. Awake , alert, and oriented x4, resting comfortably in the bed, in no acute distress . Skin: Warm, dry, no pallor, no rash or petechiae. HEENT: Atraumatic, normocephalic, EOMI, anicteric sclera B; pink conjunctiva; PERRLA, normal oropharynx, moist oral and nasal mucosa. Tympanic membrane , nose , throat clear. Neck: Trachea midline. Supple, full range of motion, no JVD, bruit , hepatojugular reflex , lymphadenopathy or masses, or other lesions Cardiac: Regular rhythm, regular rate no murmurs, rubs, or gallops. Normal S1 and S2, no S3 noticed. PMI is normal. Respiratory: Equal breath sounds bilaterally, no tachypnea; lungs clear to auscultation bilaterally, no wheezing ,rub or rales, or crackles. Chest wall is symmetric and without deformity. No signs of trauma. Chest wall is nontender. No signs of respiratory distress. Resonance is normal upon percussion bilaterally. Gastrointestinal: Abdomen symmetric, non-distended, soft, non-tender, normal bowel sounds x4 quadrant, normoactive, no hepatosplenomegaly , no masses , no bruit, no flank pain bilaterally. No voluntary guarding, rebound, or rigidity. No tenderness to percussion. No pulsatile masses. Equal femoral pulses. No Freitas's sign or McBurney point tenderness. Back; no CVA tenderness bilaterally, no deformities. Neck and back are without deformity as well. No tenderness noted on palpation of the spinous processes. Spinous processes are midline. Cervical, thoracic, and lumbar paraspinal muscles are not tender and are without spasm. Musculoskeletal: Extremities, normal range of motion, non-tender, muscle strength 5/5 x 4. Negative Homans signs bilaterally on lower extremity. Distal pulses full symmetrical, no clubbing, cyanosis , edema. Neurological: Speech is clear, alert, and oriented x 4. No motor or sensory deficit, deep tendon reflexes normal, cerebellar intact. Cranial nerves II-XII intact. Psych: Alert and or appropriate, normal affect. Vascular: Good distal pulses, which are equal x4; capillary refill less than 2 seconds. Lymphatic, no lymphadenopathy. Result Diagram: 04/21/25 1341 04/21/25 1341 Coagulation Studies Laboratory Tests Test 04/20/25 09:30 04/20/25 18:07 Prothrombin Time 10.3 SECONDS (9.0-12.0) INR International Normalized Ratio 1.0 INR Activated Partial Thromboplast Time 28 SECONDS (22-32) Coagulation Comments D-Dimer 1.34 MG/L FEU (0-0.50) H D-Dimer Comment Problem\Assessment\Plan Assessment Small-bowel obstruction, resolved Hypertensive emergency, improving Non ST-elevation [place] type 2 secondary to hypertensive emergency, no chest pain Hepatic steatosis History of polysubstance abuse including fentanyl abuse clear now On methadone therapy at home, secondary to above History of Chronic tobacco abuse including currently Plan Pain control, IV fluids keep patient well hydrated euvolemic Control blood pressure Serial troponin EKG, completed NG tube removed, started on clear fluids General surgeon Dr. Lagos signed off the case Protonix IV DVT gastropathy prophylaxis addressed Sepsis Screening Reassessment Date: Apr 21, 2025 Date of Service: Apr 21, 2025 Billing Provider: HIWOT BUITRAGO MD Common Visit Codes: [id number] INP/OBS CARE(HIGH) HIWOT BUITRAGO MD Apr 21, 2025 19:35
[2025-04-21 20:00] VITALS: RESP 16; O2SAT 93
[2025-04-22] VITALS (9 sets, daily range): BP systolic 97–171; BP diastolic 59–92; PULSE 60–87; RESP 12–19; TEMP 97–97.8; O2SAT 94–97
[2025-04-22 06:25] LABS: MEAN PLATELET VOLUME 8.0 FL (7.4-10.4); RED CELL DISTRIBUTION WIDTH 14.9 % (11.5-14.5)
[2025-04-22 06:36] LABS: CREATININE 0.82 MG/DL (0.40-0.90); TOTAL CARBON DIOXIDE 23.3 MMOL/L (24-32); eCRCL 71 ML/MIN; eGFR 72 ML/MIN
[2025-04-22] MEDS: HYDROcodone/acetaminophen 5mg/325mg tablet PO PRN (08:12)
--- NOTE | 2025-04-22 11:42 | PROGRESS NOTE ---
Daily Progress Note Providers to CC ~ please disregard this entry duplicate Central Line/PICC still needed: No Crum-Non Protocol Crum Indications Met/Not Met: F/C Indications Met Antibiotic Timeout Antibiotic Ordered?: Yes MRSA Education MRSA Education Provided to pt: Yes Objective Vital Signs Date Time Temp Pulse Resp B/P (MAP) Pulse Ox O2 Delivery O2 Flow Rate FiO2 04/22/25 09:12 18 04/22/25 08:00 96 Room Air 04/22/25 06:30 81 04/22/25 06:00 97.8 143/92 (109) 04/20/25 15:00 3.0 Result Diagram: 04/22/25 0551 04/22/25 0551 Coagulation Studies Laboratory Tests Test 04/20/25 09:30 04/20/25 18:07 Prothrombin Time 10.3 SECONDS (9.0-12.0) INR International Normalized Ratio 1.0 INR Activated Partial Thromboplast Time 28 SECONDS (22-32) Coagulation Comments D-Dimer 1.34 MG/L FEU (0-0.50) H D-Dimer Comment Problem\Assessment\Plan Assessment Small-bowel obstruction, resolved Hypertensive emergency, improving Non ST-elevation [place] type 2 secondary to hypertensive emergency, no chest pain Hepatic steatosis History of polysubstance abuse including fentanyl abuse clear now On methadone therapy at home, secondary to above History of Chronic tobacco abuse including currently Plan Pain control, IV fluids keep patient well hydrated euvolemic Control blood pressure Serial troponin EKG, completed NG tube removed, started on clear fluids General surgeon Dr. Lagos signed off the case Protonix IV DVT gastropathy prophylaxis addressed Date of Service: Apr 22, 2025 Billing Provider: HIWOT BUITRAGO MD Common Visit Codes: NOT BILLABLE HIWOT BUITRAGO MD Apr 22, 2025 11:42
[2025-04-22] MEDS: methadone 10mg tablet PO SCH (12:32)
[2025-04-22] MEDS ORDERED: CLINDAMYCIN HCL PO SCH (13:00)
--- NOTE | 2025-04-22 18:36 | PROGRESS NOTE ---
Daily Progress Note Providers to CC Feels better today, passes flatus, no stool yet, able to keep down fluids and eight clear diet food ~ Central Line/PICC still needed: No Crum-Non Protocol Crum Indications Met/Not Met: F/C Indications Not Met Antibiotic Timeout Antibiotic Ordered?: No MRSA Education MRSA Education Provided to pt: No Subjective As above Objective Vital Signs Date Time Temp Pulse Resp B/P (MAP) Pulse Ox O2 Delivery O2 Flow Rate FiO2 04/22/25 15:00 97.1 65 14 121/69 (86) 94 Room Air 04/20/25 15:00 3.0 Vital signs, stable ,afebrile. Pulse Oximetry reflects adequate oxygenation on 3 L oxygen nasal cannula General: well developed, well nourished. Awake , alert, and oriented x4, resting comfortably in the bed, in no acute distress . Skin: Warm, dry, no pallor, no rash or petechiae. HEENT: Atraumatic, normocephalic, EOMI, anicteric sclera B; pink conjunctiva; PERRLA, normal oropharynx, moist oral and nasal mucosa. Tympanic membrane , nose , throat clear. Neck: Trachea midline. Supple, full range of motion, no JVD, bruit , hepatojugular reflex , lymphadenopathy or masses, or other lesions Cardiac: Regular rhythm, regular rate no murmurs, rubs, or gallops. Normal S1 and S2, no S3 noticed. PMI is normal. Respiratory: Equal breath sounds bilaterally, no tachypnea; lungs clear to auscultation bilaterally, no wheezing ,rub or rales, or crackles. Chest wall is symmetric and without deformity. No signs of trauma. Chest wall is nontender. No signs of respiratory distress. Resonance is normal upon percussion bilaterally. Gastrointestinal: Abdomen symmetric, non-distended, soft, non-tender, normal bowel sounds x4 quadrant, normoactive, no hepatosplenomegaly , no masses , no bruit, no flank pain bilaterally. No voluntary guarding, rebound, or rigidity. No tenderness to percussion. No pulsatile masses. Equal femoral pulses. No Freitas's sign or McBurney point tenderness. Back; no CVA tenderness bilaterally, no deformities. Neck and back are without deformity as well. No tenderness noted on palpation of the spinous processes. Spinous processes are midline. Cervical, thoracic, and lumbar paraspinal muscles are not tender and are without spasm. Musculoskeletal: Extremities, normal range of motion, non-tender, muscle strength 5/5 x 4. Negative Homans signs bilaterally on lower extremity. Distal pulses full symmetrical, no clubbing, cyanosis , edema. Neurological: Speech is clear, alert, and oriented x 4. No motor or sensory deficit, deep tendon reflexes normal, cerebellar intact. Cranial nerves II-XII intact. Psych: Alert and or appropriate, normal affect. Vascular: Good distal pulses, which are equal x4; capillary refill less than 2 seconds. Lymphatic, no lymphadenopathy. Result Diagram: 04/22/25 0551 04/22/25 0551 Coagulation Studies Laboratory Tests Test 04/20/25 09:30 04/20/25 18:07 Prothrombin Time 10.3 SECONDS (9.0-12.0) INR International Normalized Ratio 1.0 INR Activated Partial Thromboplast Time 28 SECONDS (22-32) Coagulation Comments D-Dimer 1.34 MG/L FEU (0-0.50) H D-Dimer Comment Problem\Assessment\Plan Assessment Small-bowel obstruction, resolved Hypertensive emergency, improving Non ST-elevation [place] type 2 secondary to hypertensive emergency, no chest pain Hepatic steatosis History of polysubstance abuse including fentanyl abuse clear now On methadone therapy at home, secondary to above History of Chronic tobacco abuse including currently Plan Pain control, IV fluids keep patient well hydrated euvolemic Control blood pressure Serial troponin EKG, completed NG tube removed, started on clear fluids General surgeon Dr. Lagos signed off the case Protonix IV DVT gastropathy prophylaxis addressed Anticipate discharge in the morning Sepsis Screening Reassessment Date: Apr 22, 2025 Date of Service: Apr 22, 2025 Billing Provider: HIWOT BUITRAGO MD Common Visit Codes: [id number] INP/OBS CARE(HIGH) HIWOT BUITRAGO MD Apr 22, 2025 18:36
[2025-04-22] MEDS: magnesium hydroxide 30ml (MOM) UD suspension PO PRN (19:45)
[2025-04-23 02:00] VITALS: BP 110/68; PULSE 61; RESP 16; TEMP 98.2; O2SAT 95
[2025-04-23 06:00] VITALS: BP 163/76; PULSE 67; RESP 14; TEMP 97.4; O2SAT 97
[2025-04-23 06:42] LABS: MEAN PLATELET VOLUME 8.0 FL (7.4-10.4); RED CELL DISTRIBUTION WIDTH 15.1 % (11.5-14.5)
[2025-04-23 07:01] LABS: CREATININE 0.80 MG/DL (0.40-0.90); TOTAL CARBON DIOXIDE 23.9 MMOL/L (24-32); eCRCL 73 ML/MIN; eGFR 74 ML/MIN
[2025-04-23 08:00] VITALS: RESP 14; O2SAT 97
[2025-04-23] MEDS: potassium Cl 20 mEq SR tablet PO PRN (08:30)
[2025-04-23 11:00] VITALS: BP 143/72; PULSE 72; RESP 16; TEMP 97.7; O2SAT 97
[2025-04-23] MEDS ORDERED: BISA10SU60 RC (11:29)
[2025-04-23] MEDS ORDERED: LACT1CAP26 PO (11:29)
--- NOTE | 2025-04-23 16:07 | DISCHARGE SUMMARY ---
Discharge Summary Providers to No new complaint today, eager to go home ~ Discharge Summary Assessment Small-bowel obstruction Hypertensive emergency Non ST-elevation [place] type 2 secondary to hypertensive emergency Hepatic steatosis History of polysubstance abuse including fentanyl abuse clear now On methadone therapy at home, secondary to above History of Chronic tobacco abuse including currently Admission Diagnosis: SBO; HTN emergency Admission Diagnosis Comment: Small-bowel obstruction Hypertensive emergency Non ST-elevation [place] type 2 secondary to hypertensive emergency Hepatic steatosis History of polysubstance abuse including fentanyl abuse clear now On methadone therapy at home, secondary to above History of Chronic tobacco abuse including currently Hospital Course DATE OF ADMISSION: April 20, 2025 DATE OF DISCHARGE: April 23, 2025 Discharge Diagnosis\Comment: Small-bowel obstruction Hypertensive emergency Non ST-elevation [place] type 2 secondary to hypertensive emergency Hepatic steatosis History of polysubstance abuse including fentanyl abuse clear now On methadone therapy at home, secondary to above History of Chronic tobacco abuse including currently Operations\Procedures: Non Consultants: General surgeon Dr. Lagos Complications: Non Condition on DC: Stable Discharge Summary: This patient is a 59 y/o female , with history of multiple medical problems including hypertension uncontrolled, blood pressure on admission 196/115, on methadone now, history of polysubstance abuse including fentanyl abuse in the past, clear now, history of hepatic steatosis, chronic tobacco abuse including currently, history of presented today to emergency department chief complaint nausea vomiting associated with abdominal pain; in addition this is the patient who presents to ED with chief complaint of aching, located periumbilically, abdominal pain. Patient reports that since last night she has had severe abdominal pain, as well as nausea and vomiting. Patient reports she has history of small bowel obstruction, and that this pain feels similar. She describes the pain as a constant sharp pain, no radiation anywhere else. HPI limited: Patient is moaning in pain, unable to answer many of my questions due to her pain. Emergency department she was evaluated by physician, was diagnosed with small-bowel obstruction, and after consultation with general surgeon, decision was made to admit patient for further evaluation and treatment. NG tube was placed but patient refused to use it, and remove the NG tube, no additional complaint or concern, after admission patient was extensively evaluated and treated her SBO resolved, tolerated p.o. fine, had stool, we will be discharged today in stable condition home, follow-up PCP in the morning, medication reconciled, today on physical exam Vital signs, stable ,afebrile. Pulse Oximetry reflects adequate oxygenation. General: well developed, well nourished. Awake , alert, and oriented x4, resting comfortably in the bed, in no acute distress . Skin: Warm, dry, no pallor, no rash or petechiae. HEENT: Atraumatic, normocephalic, EOMI, anicteric sclera B; pink conjunctiva; PERRLA, normal oropharynx, moist oral and nasal mucosa. Tympanic membrane , nose , throat clear. Neck: Trachea midline. Supple, full range of motion, no JVD, bruit , hepatojugular reflex , lymphadenopathy or masses, or other lesions Cardiac: Regular rhythm, regular rate no murmurs, rubs, or gallops. Normal S1 and S2, no S3 noticed. PMI is normal. Respiratory: Equal breath sounds bilaterally, no tachypnea; lungs clear to auscultation bilaterally, no wheezing ,rub or rales, or crackles. Chest wall is symmetric and without deformity. No signs of trauma. Chest wall is nontender. No signs of respiratory distress. Resonance is normal upon percussion bilaterally. Gastrointestinal: Abdomen symmetric, non-distended, soft, non-tender, normal bowel sounds x4 quadrant, normoactive, no hepatosplenomegaly , no masses , no bruit, no flank pain bilaterally. No voluntary guarding, rebou nd, or rigidity. No tenderness to percussion. No pulsatile masses. Equal femoral pulses. No Freitas's sign or McBurney point tenderness. Back; no CVA tenderness bilaterally, no deformities. Neck and back are without deformity as well. No tenderness noted on palpation of the spinous processes. Spinous processes are midline. Cervical, thoracic, and lumbar paraspinal muscles are not tender and are without spasm. Musculoskeletal: Extremities, normal range of motion, non-tender, muscle strength 5/5 x 4. Negative Homans signs bilaterally on lower extremity. Distal pulses full symmetrical, no clubbing, cyanosis , edema. Neurological: Speech is clear, alert, and oriented x 4. No motor or sensory deficit, deep tendon reflexes normal, cerebellar intact. Cranial nerves II-XII intact. Psych: Alert and or appropriate, normal affect. Vascular: Good distal pulses, which are equal x4; capillary refill less than 2 seconds. Lymphatic, no lymphadenopathy. *Problems/Diagnosis: (1) Small bowel obstruction Status: Acute Total Time Spent on D/C: > 30 Minutes Date of Service: Apr 23, 2025 Billing Provider: HIWOT BUITRAGO MD Common Visit Codes: [id number] DISCH DAY >30min HIWOT BUITRAGO MD Apr 23, 2025 16:07
== END 2025-04-23 13:48 | disposition home or self-care (01) | DRG 199 ==
LOC: ER 02:56 → ED HOLD 11:51 → PCU 3S 14:06
PROVIDERS: ADMIT Family Medicine; ATTEND Family Medicine
PROC: 0D9670Z Drainage of Stomach with Drainage Device, Via Natural or Artificial Opening (ICD-10-PCS; principal; 2025-04-20)
PROC: BW211ZZ Computerized Tomography (CT Scan) of Abdomen and Pelvis using Low Osmolar Contrast (ICD-10-PCS; 2025-04-20)
PROC: BW211ZZ Computerized Tomography (CT Scan) of Abdomen and Pelvis using Low Osmolar Contrast (ICD-10-PCS; 2025-04-21)
DX: I16.1 Hypertensive emergency (principal); K56.609 Unspecified intestinal obstruction, unspecified as to partial versus complete obstruction; I21.A1 Myocardial infarction type 2; I10 Essential (primary) hypertension; K76.0 Fatty (change of) liver, not elsewhere classified; Z72.0 Tobacco use; Z88.0 Allergy status to penicillin; Z90.49 Acquired absence of other specified parts of digestive tract; Z90.710 Acquired absence of both cervix and uterus; Z91.199 Patient's noncompliance with other medical treatment and regimen due to unspecified reason; Z91.018 Allergy to other foods
CPT/HCPCS: 36415; 71045; 74176; 74177; 80053; 80061; 80305; 80320; 81003; 82550; 83036; 83605; 83690; 83735; 83880; 84100; 84145; 84443; 84484; 85025; 85379; 85610; 85651; 85730; 86140; 93005; 96374; 96375; 96376; 97116; 97161; 97530; 99285; G0378; J0360; J1171; J1644; J2270; J2405; J2470; J2765; J7030; Q9963; Q9967

== ENCOUNTER 2025-04-29 13:11 | Emergency (ER) | payer MEDICAID ==
[~2025-04-29] VITALS: Ht 167.6 cm; Wt 63.7 kg
[~2025-04-29 13:11] MED LIST changes: +BISA10SU60 RC; +CLIN-216 PO; -DICL1PAT13 TOP; +LACT1CAP26 PO; -NAPR-1168 PO; -NAPR-56 PO; +methadone PO
[2025-04-29 13:30] VITALS: TEMP 97.3
[2025-04-29 13:58] VITALS: BP 123/78; PULSE 76; RESP 16; O2SAT 96
--- NOTE | 2025-04-29 14:35 | Physician Documentation ---
History of Present Illness ~ Chief Complaint: Constipation Stated Complaint: BOWEL COMPLICATIONS Time Seen by MD: 14:17 Primary Medical Doctor: None HPI 59-year-old female presents to the ED with a complaint of lower quadrant abdominal pain and difficulty having a bowel movement. He was recently admitted for suspected SBO prescribed multiple laxative. She had one bowel movement before leaving. She was discharged on eight one this week. Patient is not vomiting and denies any recent vomiting denies any fevers as well. Currently passing gas She says she has not had a bowel movement since she was in the hospital. Denies any vomiting states she is still passing gas. Additionally, the patient is a methadone patient. Day of Onset: Apr 29, 2025 Medication Reconciliation Allergies: Uncoded Allergies: DAIRY (Allergy, Intermediate, 12/08/11) DIARRHEA PENICILLIN (Allergy, Unknown, 04/20/25) Scheduled Bisacodyl (Dulcolax), 1 SUPP RC DAILY Clindamycin HCl (Clindamycin HCl), 1 CAP PO TID, (Reported) Lactobacillus Rhamnosus (Culturelle), 1 CAP PO DAILY Polyethylene Glycol 3350* (Miralax*), 1 PKT PO DAILY [methadone], 81 MG PO DAILY, (Reported) Past Medical History Past Medical History: Chronic Back Pain Past Surgical History: appendectomy, hysterectomy, orthopedic surgeries Alcohol Use: None Drug Use: none Lives with: Family Lives In: Home Physical Exam Vital Signs: Temperature: 97.3, Source: Temporal, Heart Rate: 76, Respiratory Rate: 16, BP: 123/78, Pulse Oximetry: 96, Weight: 63.700 Oxygen Flow Rate: 0 Physical Exam General: Alert, no apparent distress. Respiratory: Lungs clear, no respiratory distress. Cardiovascular: Regular rate and rhythm, no murmurs. Gastrointestinal: Soft, tender LLQ nondistended. Bowels sounds present. . Neurologic: Oriented x4. Psychiatric: Normal mood and affect. Skin: Normal color, warm and dry. No edema, no ecchymosis. Progress Results/Orders Results/Orders Orders - NIMESH LI LICENSED REACTOR OPERATOR Urinalysis, Cult If Indicated (04/29/25 14:22) Hcg, Ur Ql (04/29/25 14:22) Completed Orders - NIMESH LI LICENSED REACTOR OPERATOR Cbc/Diff (04/29/25 14:22) BMP (04/29/25 14:22) Lipase (04/29/25 14:22) CMP (04/29/25 14:22) Methylnaltrexone Br Inj (Relistor Inj (04/29/25 14:30) Vital Signs 04/29/25 04/29/25 04/29/25 13:30 13:58 14:05 Temp 97.3 Pulse 77 76 Resp 15 16 B/P (MAP) 128/85 123/78 (93) Pulse Ox 99 96 O2 Flow Rate 0 Laboratory Tests Test 04/29/25 14:53 04/29/25 14:57 Sodium Level 138 Potassium Level 4.0 Chloride Level 103 Carbon Dioxide Level 24.9 Anion Gap 10 Blood Urea Nitrogen 8 Creatinine 0.95 H Estimated GFR/1.73 m2 61 BUN/Creatinine Ratio 8.4 L Glucose Level 126 H Calcium Level 8.8 Total Bilirubin 0.3 Aspartate Amino Transf (AST/SGOT) 27 Alanine Aminotransferase (ALT/SGPT) 56 Alkaline Phosphatase 105 Total Protein 7.0 Albumin 3.7 Globulin 3.3 Albumin/Globulin Ratio 1.1 Lipase 22 Chemistry Comments White Blood Count 7.0 Red Blood Count 3.95 L Hemoglobin 12.0 Hematocrit 35.0 Mean Corpuscular Volume 88.6 Mean Corpuscular Hemoglobin 30.3 Mean Corpuscular Hemoglobin Concent 34.2 Red Cell Distribution Width 15.3 H Platelet Count 334 Mean Platelet Volume 7.9 Neutrophils (%) (Auto) 49.9 Lymphocytes (%) (Auto) 36.8 Monocytes (%) (Auto) 6.8 Eosinophils (%) (Auto) 5.9 Basophils (%) (Auto) 0.6 Neutrophils # (Auto) 3.5 Lymphocytes # (Auto) 2.6 Monocytes # (Auto) 0.5 Eosinophils # (Auto) 0.4 Basophils # (Auto) 0.0 CBC Comment Medical Decision Making Findings Patient was initially concerning for a repeat SBO or worsening symptoms. However in talking with her more she is a persistent chronic methadone user in his being monitored for at her last stay in the hospital she did not receive Relistor he had received multiple laxatives and and ongoing narcotic pain medication. Today she did not present as acutely ill or she is did not show any signs of sepsis. He would give her Relistor which precipitated a large bowel movement fairly short after receiving. Explained to the patient the mechanism of action in relation to chronic opioid use. I also prescribed her MiraLax to prevent further SBO or fecal impaction. Patient states she is going to be placed on Suboxone next week any ways which she believes he will be better for her gastric motility Diff Dx GI Bleed:Consideration: Include: AE fistula, Angiodysplasia, Bleeding diathesis, Blood loss anemia, Carcinoma, Diverticulosis, Diverticulitis, Esophageal varicies, Esophagitis, Gastritis, Gastroenteritis, Inflammatory BD, Melissa-Ortiz syndrome, Meckel's diverticulum, PUD, Other Diff Dx N/V/D:Considerations: Include: Appendicitis, Bowel obstruction, Dehydration, DKA, Diarrhea - bacterial, Diarrhea - parasitic, Diarrhea - viral, Diverticulitis, Diverticulosis, Drug toxicity, Electrolyte imbalance, Food poisoning, Gastroenteritis, GE reflux, GI bleed, Hepatitis, Hernia, Hypovolemia, Hypotension, Inflammatory BD, Impaction, Malnutrition, Pancreatitis, , PUD, Renal failure, Urolithiasis, Urinary obstruction, UTI, Other Departure Disposition: 01 HOME / SELF CARE / HOMELESS Impression: Primary Impression: Constipation Additional Impression: Fecal impaction Condition: Improved Discharge Instructions: Constipation, Adult Referrals: NO PRIMARY CARE PROVIDER (PCP) Prescriptions Polyethylene Glycol 3350* (Miralax*) 1 Packet Packet 1 PKT PO DAILY for constipation, #30 PKT dissolve in water Prov: NIMESH LI NP 04/29/25 Education Educated: Patient Educated regarding: diagnosis Signature Scribe Signature: f Attestation: Scribed for Nimesh Li Electronics Installer by Nimesh Martinez NP . 04/29/25 15:00 NIMESH LI NP Apr 29, 2025 14:35
--- NOTE | 2025-04-29 14:37 | Physician Documentation ---
History of Present Illness ~ Chief Complaint: Constipation Stated Complaint: BOWEL COMPLICATIONS Time Seen by MD: 14:17 Primary Medical Doctor: None Medication Reconciliation Allergies: Uncoded Allergies: DAIRY (Allergy, Intermediate, 12/08/11) DIARRHEA PENICILLIN (Allergy, Unknown, 04/20/25) Scheduled Bisacodyl (Dulcolax), 1 SUPP RC DAILY Clindamycin HCl (Clindamycin HCl), 1 CAP PO TID, (Reported) Lactobacillus Rhamnosus (Culturelle), 1 CAP PO DAILY [methadone], 81 MG PO DAILY, (Reported) Past Medical History Past Medical History: Chronic Back Pain Past Surgical History: appendectomy, hysterectomy, orthopedic surgeries Alcohol Use: None Drug Use: none Lives with: Family Lives In: Home Physical Exam Vital Signs: Temperature: 97.3, Source: Temporal, Heart Rate: 76, Respiratory Rate: 16, BP: 123/78, Pulse Oximetry: 96, Weight: 63.700 Oxygen Flow Rate: 0 Progress Results/Orders Results/Orders Orders - GISELE LI DESK DIRECTOR Urinalysis, Cult If Indicated (04/29/25 14:22) Hcg, Ur Ql (04/29/25 14:22) Cbc/Diff (04/29/25 14:22) BMP (04/29/25 14:22) Lipase (04/29/25 14:22) CMP (04/29/25 14:22) Vital Signs 04/29/25 04/29/25 04/29/25 13:30 13:58 14:05 Temp 97.3 Pulse 77 76 Resp 15 16 B/P (MAP) 128/85 123/78 (93) Pulse Ox 99 96 O2 Flow Rate 0 Departure Referrals: NO PRIMARY CARE PROVIDER (PCP) GISELE LI DESK DIRECTOR Apr 29, 2025 14:37
[2025-04-29] MEDS: methylnaltrexone br 12mg/0.6ml inj***SubQ only SQ ONE (14:52)
[2025-04-29] MEDS ORDERED: POLY17PO10 PO (15:00)
[2025-04-29 15:22] LABS: MEAN PLATELET VOLUME 7.9 FL (7.4-10.4); RED CELL DISTRIBUTION WIDTH 15.3 % (11.5-14.5)
[2025-04-29 15:35] LABS: CREATININE 0.95 MG/DL (0.40-0.90); TOTAL CARBON DIOXIDE 24.9 MMOL/L (24-32); eCRCL 61 ML/MIN; eGFR 61 ML/MIN
== END 2025-04-29 15:58 | disposition home or self-care (01) ==
LOC: ER 13:12
DX: K59.00 Constipation, unspecified (principal); K56.41 Fecal impaction; Z90.49 Acquired absence of other specified parts of digestive tract; Z90.710 Acquired absence of both cervix and uterus
CPT/HCPCS: 36415; 80053; 83690; 85025; 96372; 99283; J2212